=== PATIENT | female | born 1975 | race Caucasian/White ===

== ENCOUNTER → 2021-12-25 15:08 | Outpatient (CLI) | payer BC, SELFPAY ==
--- NOTE | 2021-12-25 15:09 | US_ITS ---
FINAL REPORT CLINICAL HISTORY: DUB FINDINGS: Transvaginal sonographic images of the pelvis were obtained. The uterus measures 8.1 x 4.3 x 5 cm. No focal uterine mass is identified. The endometrium measures 2 mm. The right ovary measures 3.8 x 3.7 x 3.6 cm. The left ovary measures 3.0 x 3.7 x 2.4 cm peer there is a 3.3 cm right ovarian cyst and a 2.7 cm left ovarian cyst. IMPRESSION: Bilateral ovarian cysts as above. Recommend follow-up in 6-8 weeks. Reviewed, Interpreted and Dictated by Jim Dacosta III, MD Transcribed by Ngozi Pichardo Authenticated and [facility]
== END ==
PROVIDERS: PCP Emergency Medicine; Visit Provider Obstetrics & Gynecology
DX: N93.8 Other specified abnormal uterine and vaginal bleeding (principal)
CPT/HCPCS: 76830

== ENCOUNTER → 2022-02-06 14:39 | Outpatient (CLI) | payer BC, SELFPAY ==
--- NOTE | 2022-02-06 14:41 | US_ITS ---
FINAL REPORT CLINICAL HISTORY: 6 week follow up bialt ov cysts COMPARISON: December 25, 2021 FINDINGS: Transvaginal sonographic images of the pelvis were obtained. The uterus measures 7.9 x 4.6 x 4.0 cm. The endometrium measures 3 mm, which is within normal limits. No uterine mass is identified. The right ovary measures 3.1 x 2.5 x 1.4 cm in length and left ovary measures 4.5 x 3.7 x 2.7 cm in length. Normal blood flow seen to the ovaries. A right ovarian cyst measures 2 cm and previously measured 3.3 cm. A left ovarian cyst measures 4.1 cm in previously measured 2.7 cm. There is no evidence of free fluid. IMPRESSION: Partially improved right ovarian cyst and increased in size left ovarian cyst. Recommend additional follow-up in 6-8 weeks. Reviewed, Interpreted and Dictated by Jim Dacosta III, MD Transcribed by Paula Harper Authenticated and . [facility]
== END ==
PROVIDERS: PCP Emergency Medicine; Visit Provider Obstetrics & Gynecology
DX: N93.8 Other specified abnormal uterine and vaginal bleeding (principal)
CPT/HCPCS: 76830

== ENCOUNTER → 2022-02-12 15:32 | Outpatient (CLI) | payer BC, SELFPAY ==
[2022-02-12 16:52] LABS: Basophils # 0.1 K/mm3 (0-0.2); Basophils % 0.6 % (0.1-2.0); Eosinophils # 0.2 K/mm3 (0.0-0.4); Eosinophils % 2.6 % (0.1-12.0); Hematocrit 34.4 % (37.0-47.0); Hemoglobin 10.4 g/dL (12.2-16.2); Lymphocytes # 2.8 K/mm3 (0.7-4.5); Lymphocytes % 31.6 % (10-50); Mean Corpuscular HGB Conc 30.1 g/dL (31.8-35.4); Mean Corpuscular Hemoglobin 26.1 pg (27.0-31.2); Mean Corpuscular Volume 86.7 fl (81-99); Mean Platelet Volume 9.7 fl (7.4-10.4); Monocytes # 0.4 K/mm3 (0.1-1.0); Monocytes % 4.8 % (1.7-9.3); Neutrophils # 5.5 K/mm3 (1.8-7.8); Neutrophils % 60.5 % (37.0-80.0); Platelet Count 387 K/mm3 (142-424); Red Blood Count 3.97 M/mm3 (4.20-5.40); Red Cell Distribution Width 16.1 % (11.5-17.5)
[2022-02-12 17:23] LABS: Chloride 102 mmol/L (98-107); Sodium 137 mmol/L (136-145)
[2022-02-12 17:25] LABS: Blood Urea Nitrogen 9 mg/dl (7-17); Estimated Glomerular Filt Rate 109 ml/min (>60); GFR (African American) 131 ML/MIN (>60)
[2022-02-12 17:26] LABS: Alanine Aminotransferase 18 U/L (12-78); Albumin/Globulin Ratio 1.5 (1.1-1.8); Alkaline Phosphatase 73 U/L (38-126); Aspartate Amino Transferase 30 U/L (14-36); Calcium 9.3 mg/dl (8.4-10.2); Carbon Dioxide 29 mmol/L (22.0-30.0); Globulin 2.6 g/dL (1.3-3.2); Glucose 110 mg/dl (74-100); Total Protein,Serum 6.6 g/dl (6.3-8.2)
[2022-02-12 17:35] LABS: Bilirubin,Total < 0.1 mg/dl (0.2-1.3)
== END ==
PROVIDERS: PCP Emergency Medicine; Visit Provider Obstetrics & Gynecology
DX: Z01.812 Encounter for preprocedural laboratory examination (principal); Z20.822 Contact with and (suspected) exposure to COVID-19; N92.0 Excessive and frequent menstruation with regular cycle; N93.8 Other specified abnormal uterine and vaginal bleeding
CPT/HCPCS: 36415; 80053; 85025; C9803; U0003; U0005

== ENCOUNTER 2022-02-14 07:00 | Day surgery (SDC) | payer BC, SELFPAY ==
[2022-02-12 13:25] VITALS: BMI 25.4
[2022-02-13 14:28] LABS: HCG Qualitative, Serum Negative (Negative)
[2022-02-14] VITALS (15 sets, daily range): BP systolic 119–153; BP diastolic 86–96; PULSE 63–81; RESP 16–18; TEMP 36.1–36.6; O2SAT 98–100
--- NOTE | 2022-02-14 07:50 | EXP.ANES.CKL ---
[facility] LICENSE OF [facility] Medical History Atypical squamous cells of undetermined significance (ASC-US) on cervical Pap smear GERD (gastroesophageal reflux disease) Scoliosis Tobacco abuse Surgical History H/O LEEP H/O tubal ligation History of bilateral carpal tunnel release History of carpal tunnel release History of tonsillectomy and adenoidectomy History of tubal ligation Family History (Updated 02/14/22 @ 07:19 by Inga Draper, ANGELIKA) Mother Hypertension Family history of CVA Family history of myocardial infarction Hyperlipidemia Father Hypertension Sister Hyperlipidemia Brother Hyperlipidemia Social History (Updated 02/14/22 @ 07:22 by Inga Draper RN) Smoking Status: Current every day smoker tobacco type: cigarettes packs per day: 1 smoking status start date: 1989 years smoked: 30 second hand exposure: Yes alcohol intake: never substance use type: former substance user, crack/cocaine, opiates and painkillers current occupational status: employed Travel in the last 8 weeks: None [facility] Anesthesia Checklist Patient Identification Patient Identification: Arm Band Structural Data Admitted From: Home Planned Operative Procedure/s: Hysteroscopy, D&C, Novasure/Myosure Ablation Consent for Planned Operative Procedure(s) Verified: Yes Verified Documents: Surgical Consent and History and Physical NPO Status Verified Time NPO: 00:00 Additional verifications Anesthesia Reactions: No Hx Blood Transfusions: No Blood Transfusion Reaction: No Airway Assessment C-Spine Mobility Assessed: Yes TMJ Mobility Assessed: Yes Dentition: Good Dentition Neurological Assessment Level of Consciousness: Awake and Alert Anesthesia Plan Anesthesia Risk discussed: Yes Anesthesia Plan: Verified ASA Class: II Anesthesia Type: General Preoperative Comments Pre-Operative Comments: Pt currently taking suboxone, last dose yesterday
--- NOTE | 2022-02-14 09:54 | EXP.ANES.I ---
[facility] Anesthesia Record Part I Anesthesia Record I Intake, IV Amount: 100 Estimated blood loss (mL): 5 Urine output (mL): 0 Blood Products used (#): none Blood Pressure: 153/96 SaO2: 100 Pulse Rate: 73 Respiratory Rate: 18 Temperature: 97 F Patient is:: Drowsy and Stable Stable to PACU at:: 09:49
--- NOTE | 2022-02-14 10:29 | SUR.PHASEI ---
1023- detailed report called to racheal shaw in post op 1025- pt left in stable condition with racheal shaw in post op at this time
--- NOTE | 2022-02-14 10:35 | P.OP_ITS ---
Date of procedure: 02/14/22 Pre-op Diagnosis:: 1. Heavy menstrual bleeding 2. Dysfunctional uterine bleeding 3. Anemia resulting from chronic blood loss Post-op Diagnosis:: same as preop Procedure performed:: D&C Hysteroscopy Novasure Endometrial Ablation Surgeon:: Edel Vicente MD [employer]:: Other Anesthesia: GETA Estimated blood loss (mL): 5 Operative findings:: Grossly normal uterine cavity No polyps or fibroids visualized Operative note:: The patient was taken to the OR where general anesthesia was administered without difficulty. She was prepped/draped in the normal sterile fashion in supine position. The cervix was dilated until hysteroscope could be accomodated. The hysteroscope was introduced through the cervix into the uterus and the cavity surveyed. No polyps or fibroids were observed within the cavity. The hysteroscope was removed and sharp curettage performed; the specimen was sent for pathology. The Novasure device was introduced into the uterus. The cavity length was measured at 5cm and width at 4cm, and the cavity assessment was successful. The Novasure was deployed and the endometrial ablation was completed in 74 seconds, and without complication. All instruments were removed from her vagina, she was awakened from anesthesia and taken to PACU in stable condition. Condition: stable Disposition: PACU Specimens:: Endometrial curettings Complications:: none
--- NOTE | 2022-02-14 10:50 | EXP.ANES.II ---
[facility] Anesthesia Record Part II Anesthesia Record Part II Discharge Time: 10:19 Destination: Surgical Day Care (OP Surgery) PACU nurse assessment reviewed?: Yes Patient Condition:: Good Anesthesia Complications:: None Swallowing reflex intact?: Yes Cyanosis?: No Blood Pressure: 145/89 Pulse Rate: 68 Temperature: 97 F Mental Status: Alert & Oriented Pain level:: 8 Nausea and/or vomitting:: None Intake, IV Amount: 0
== END 2022-02-14 10:57 | disposition home or self-care (01) ==
PROVIDERS: PCP Emergency Medicine; Visit Provider Obstetrics & Gynecology
PROC: (CPT 58563; principal; 2022-02-14 08:45)
DX: N92.0 Excessive and frequent menstruation with regular cycle (principal); D50.0 Iron deficiency anemia secondary to blood loss (chronic); Z72.0 Tobacco use; Z79.899 Other long term (current) drug therapy
CPT/HCPCS: 58563; 84703; 96374; J2405

== ENCOUNTER 2025-04-26 11:02 | Outpatient (CLI) | payer OTHER, SELFPAY ==
[2025-04-26 13:43] LABS: Hepatitis C Ab Qual. W/ RFX NEGATIVE (Negative)
[2025-04-27 05:19] LABS: Hepatitis B Surface Antigen Negative (Negative)
== END 2025-04-26 23:59 | disposition home or self-care (01) ==
LOC: LAB 11:04
PROVIDERS: PCP Emergency Medicine; Visit Provider Obstetrics & Gynecology
DX: N89.8 Other specified noninflammatory disorders of vagina (principal); Z11.3 Encounter for screening for infections with a predominantly sexual mode of transmission
CPT/HCPCS: 36415; 86803; 87340; 87389